=== PATIENT | male | born 1955 ===

== ENCOUNTER 2022-10-28 10:48 | Day surgery (SDC) | payer OTHER ==
[~2022-10-28] VITALS: Ht 185.4 cm; Wt 110.2 kg
[2022-10-28] MEDS ORDERED: ALBU90OI INH (11:02)
--- NOTE | 2022-10-28 11:07 | NUR ---
10/28/22 1107 DEAN HORTA T:1105 P:[address] ALL QUESTIONS ASKED.
--- NOTE | 2022-10-28 12:27 | NUR ---
10/28/22 1227 Argentina Chu PT, DC WITH SUN GLASSES ON
== END 2022-10-28 12:23 | disposition home or self-care (01) ==
LOC: ORSCSDS 10:48
PROVIDERS: Ophthalmology
PROC: 08DJ3ZZ Extraction of Right Lens, Percutaneous Approach (ICD-10-PCS; principal; 2022-10-28 12:00)
DX: H25.13 Age-related nuclear cataract, bilateral (principal); R06.02 Shortness of breath; J44.9 Chronic obstructive pulmonary disease, unspecified; F17.210 Nicotine dependence, cigarettes, uncomplicated; Z79.899 Other long term (current) drug therapy
CPT/HCPCS: J1100; J2250; J2405; J3010; J3301; J7040; V2632